=== PATIENT | male | born 1975 | race Caucasian/White ===

== ENCOUNTER 2020-05-03 16:04 | Emergency (ER) | payer OTHER ==
[~2020-05-03] VITALS: Ht 190.5 cm; Wt 158.8 kg
--- NOTE | 2020-05-03 22:03 | EKG ---
[facility] [address] [facility] [place] [address] Signed Sinus tachycardia Low voltage QRS Right bundle branch block Abnormal ECG Confirmed by ALBER HU MD ([id number]) on 05/03/2020 10:03:04 PM Electronically Signed By: ALBER HU MD 05/03/202202 PATIENT NAME: HEIDY WATTS Electrocardiogram DATE OF : 73 PHYSICIAN: ALBER HU MD REPORT #: [id number] REPORT IS CONFIDENTIAL AND NOT TO BE RELEASED WITHOUT AUTHORIZATION
== END 2020-05-03 19:25 | disposition home or self-care (01) ==
LOC: ED 16:04
DX: K21.9 Gastro-esophageal reflux disease without esophagitis (principal)
CPT/HCPCS: 71046; 80053; 83735; 84484; 85025; 85379; 93005; 93010; 99285-25